=== PATIENT | male | born 1960 | race Caucasian/White ===

== ENCOUNTER 2017-06-08 07:00 | Day surgery (SDC) | payer BC, OTHER ==
[2017-06-06 17:09] VITALS: BMI 27.8
[2017-06-08] MEDS ORDERED: PROPOFOL 20 ML ONE (08:28)
[2017-06-08] MEDS ORDERED: MIDAZOLAM HCL 2 MG/2 ML SINGLE DOSE VIAL ONE (08:28)
[2017-06-08] MEDS ORDERED: ceFAZolin SODIUM 1 GM VIAL ONE (08:30)
[2017-06-08] MEDS ORDERED: KETOROLAC TROMETHAMINE 30 MG/1 ML VIAL ONE (08:30)
[2017-06-08] MEDS ORDERED: LIDOCAINE HCL/PF 2% SDV 5ML VIAL ONE (08:30)
[2017-06-08] MEDS ORDERED: DEXAMETHASONE SOD PHOSPHATE 4 MG/1 ML VIAL ONE (08:30)
[2017-06-08] MEDS ORDERED: ONDANSETRON 4 MG/2 ML VIAL ONE (08:30)
[2017-06-08] MEDS ORDERED: BUPIVACAINE HCL/PF 2.5 MG/ML - 30 ML VIAL IJ ONE (08:31)
[2017-06-08] MEDS ORDERED: ONDANSETRON 4 MG/2 ML VIAL IVPUSH PRN (09:46)
[2017-06-08] MEDS ORDERED: PROMETHAZINE HCL 25 MG/1 ML VIAL IVPUSH PRN (09:46)
[2017-06-08] MEDS ORDERED: oxyCODONE HCL 5 MG TABLET PO PRN ×2 (09:46)
[2017-06-08] MEDS ORDERED: LACTATED RINGERS SOLUTION 1,000 ML IV SCH (10:00)
[2017-06-08 10:20] VITALS: TEMP 97.7
[2017-06-08 10:43] VITALS: BP 128/68; PULSE 68
--- NOTE | 2017-06-11 00:31 | OP ---
DATE OF OPERATION: 06/08/2017 SURGEON: Delphine Davis MD IT RECRUITER: DANETTE Bender PREOPERATIVE DIAGNOSES: 1. Right olecranon bursitis. 2. Olecranon spur. POSTOPERATIVE DIAGNOSES: 1. Right olecranon bursitis. 2. Olecranon spur. PROCEDURE: Excision of right olecranon bursa. FINDINGS: 1. Thickened, scarred tissue of the olecranon bursa. 2. Bone spur of the proximal olecranon, posterior portion. DESCRIPTION OF PROCEDURE: After informed consent from the patient, the patient was taken to the operating room. The right upper extremity was prepped and draped in the sterile fashion. Tourniquet was placed then inflated to 250 mmHg. A central incision was made along the area of the posterior elbow. Thickened bursal tissue was excised, paying careful attention to the ulnar nerve and its structures. This was removed and sent to pathology for evaluation. There was noted to be a spur along the posterior portion of the proximal olecranon. This was excised and then a rasp was used to smooth out the surface. Wound was irrigated with pulsatile irrigation. Layered closure with 2-0 Vicryl and 3-0 Monocryl. A sterile dressing was placed. The patient was transferred to the recovery room without complication. DELPHINE DAVIS M.D. [id number]
--- NOTE | 2017-06-13 15:45 | PATH ---
Surgical Pathology Report Patient Name: ROMAN BRADLEY [facility]. Rec. #: [id number] /Age/Gender: 1960 (Age: 57) / M Account: [id number] Location: [facility] AMBULATORY Taken: 06/08/2017 Received: 06/08/2017 Reported: 06/13/2017 Physicians: Federico Coleman M.D. Specimen(s) Received RIGHT OLECRANON MASS Clinical History Olecranon bursitis right elbow Final Diagnosis OLECRENON MASS, RIGHT, EXCISION: FIBROSYNOVIAL TISSUE SHOWING CHRONIC INFLAMMATION, GRANULATION TISSUE FORMATION AND DENSE FIBROSIS. Electronically Signed Lo Sutton M.D. Gross Description Received in formalin labeled "right olecranon mass," is a 5.0 x 4.8 x 0.8 cm calvert, irregular portion of soft tissue. Clinical Research Physician sections are submitted in one cassette. /06/08/201706/08/2017
== END 2017-06-08 10:45 | disposition home or self-care (01) ==
LOC: FASU 07:00
PROVIDERS: ATTEND Orthopaedic Surgery
PROC: 0PBK0ZZ Excision of Right Ulna, Open Approach (ICD-10-PCS; principal; 2017-06-08 08:42)
DX: M70.21 Olecranon bursitis, right elbow (principal)
CPT/HCPCS: 88305-TC; 94760